=== PATIENT | male | born 1980 | race Two or more races ===

== ENCOUNTER 2021-08-12 18:53 | Emergency (ER) | payer OTHER ==
[~2021-08-12] VITALS: Ht 180.3 cm; Wt 83.9 kg
[2021-08-12] MEDS ORDERED: CLEOCIN HCL300 MG PO (20:34)
== END 2021-08-12 20:48 | disposition home or self-care (01) ==
LOC: ER 18:53
DX: S80.812A Abrasion, left lower leg, initial encounter (principal); S80.811A Abrasion, right lower leg, initial encounter; X58.XXXA Exposure to other specified factors, initial encounter; Y93.9 Activity, unspecified; Y92.9 Unspecified place or not applicable; Y99.9 Unspecified external cause status